=== PATIENT | male | born 1960 | race Caucasian/White ===

== ENCOUNTER 2016-06-25 19:55 | Emergency (ER) | payer OTHER ==
[~2016-06-25] VITALS: Ht 177.8 cm; Wt 95.5 kg
[2016-06-25 20:18] VITALS: Ht 177.8 cm; Wt 95.5 kg
[2016-06-25] MEDS ORDERED: AMO500 PO (20:30)
[2016-06-25] MEDS ORDERED: IBUP-1542 PO (20:30)
--- NOTE | 2016-06-25 20:49 | ERD ---
ER Documentation Chief Complaint Date/Time DATE: 06/25/16 TIME: 20:47 Chief Complaint sore throat x 2 days; fever and cough complaint HPI This is a 56-year-old male presenting to the emergency room with a chief complaint of sore throat for the past 2 days, patient rates the pain 8 out of 10 described as sharp, constant and increased with swallowing. Patient states that he feels like he has chills but denies any fevers. He states that he has swollen and tender lymph nodes. He denies cough, he denies taking any medications ROS All systems reviewed and are negative except as per history of present illness. Medications Home Meds Active Scripts Ibuprofen* (Ibuprofen*) 600 Mg Tablet, 600 MG PO Q6H Y for PAIN AND OR ELEVATED TEMP, #30 TAB Prov:ROSIE ORTIZ PA-C 06/25/16 Amoxicillin* (Amoxicillin*) 500 Mg Cap, 500 MG PO BID for 10 Days, CAP Prov:ROSIE ORTIZ PA-C 06/25/16 Physical Exam Vitals Vital Signs Date Time Temp Pulse Resp B/P Pulse Ox O2 Delivery O2 Flow Rate FiO2 06/25/16 20:18 98.8 78 18 138/75 99 Physical Exam GENERAL: well-developed/well-nourished, in no apparent distress, non-toxic appearing HEAD: NC/AT, no swelling noted in frontal or maxillary areas EARS: bilateral tympanic membrane is intact without erythema or effusion NARES: nares patent THROAT: oropharynx erythematous without exudates, no tonsil enlargement EYES: Conjunctiva normal NECK: Supple, cervical lymphadenopathy PULM: CTA bilaterally, no rales, rhonchi, or wheezing heard CV: Normal S1S2, RRR, good capillary refill GI: Soft, non-distended, normal bowel sounds, non-tender BACK: No midline tenderness, no masses EXT No clubbing, cyanosis, or edema NEURO: Alert and Orientated SKIN: Intact, normal turgor PSYCH: Normal mood and mentation Procedures/MDM This is a 56-year-old male presenting to the emergency department with pharyngitis likely viral versus strep. On examination patient had cervical lymphadenopathy with an erythematous oropharynx. He stated he had fever but no reported fever in the ER, he denies cough. This is likely a viral pharyngitis however due to [facility] criteria patient will be treated for possible strep pharyngitis with a prescription for amoxicillin. There was no evidence of peritonsillar or retropharyngeal abscess. Patient is stable for discharge her home with prescription for amoxicillin and ibuprofen. Discussed return to the ER for any worsening sinus symptoms. He understands and agrees with this plan Departure Diagnosis: Primary Impression: Pharyngitis Condition: Stable Patient Instructions: Pharyngitis, Strep (Presumed) Additional Instructions: FOLLOW UP WITH YOUR PRIMARY CARE PHYSICIAN TOMORROW.Return to this facility if you are not improving as expected. Take all medicines as directed. Return to this facility if you are not improving as expected. ROSIE ORTIZ PA-C June 25, 2016 20:49
== END 2016-06-25 20:31 | disposition home or self-care (01) ==
LOC: E/R 19:55
DX: J02.9 Acute pharyngitis, unspecified (principal)
CPT/HCPCS: 99283